=== PATIENT | female | born 1945 | race American Indian/Alaskan Native ===

== ENCOUNTER 2018-04-14 09:15 | Day surgery (SDC) | payer MEDICARE ==
[~2018-04-14 09:15] MED LIST: ANCEF/STERILE WATER 2 GM/20 ML 2 GM/20 ML SYRINGE IV NR; NACL 0.9% 1000 ML 1,000 ML IV SCH
--- NOTE | 2018-04-14 10:35 | Short Stay Summary ---
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 H&P: obtained from office - Allergies and Medications Current Medications: Allergies lisinopril Allergy (Verified 04/14/18 10:12) SEVERE COUGH soy Allergy (Verified 04/14/18 10:12) CAUSES VAGINAL BLEEDING Active Medications Cefazolin Sodium (Ancef/Sterile Water 2 Gm/20 Ml) 2 gm in 20 mls @ 80 mls/hr IV PREOP NR; Protocol Stop: 04/14/18 23:59 Sodium Chloride (Nacl 0.9% 1000 Ml) 1,000 mls @ 42 mls/hr IV DIRECT ELMER - Brief post op/procedure progress note Date of procedure: 04/14/18 Pre-op diagnosis: venous compression Post-op diagnosis: other (poor cardiac output) Procedure: Bilateral lower extremity venogram, intravascular ultrasound Anesthesia: local Surgeon: ANGELIC MACIEL Estimated blood loss: minimal Pathology: none Condition: stable - Disposition Condition at discharge: Good Disposition: [id number] TO HOME OR SELFCARE Short Stay Discharge Plan Activity: advance as tolerated Weight Bearing Status: Weight Bear as Tolerated Diet: regular Wound: keep clean and dry, per your surgeon's advice Follow up with: HARSHAL YAP MD [Primary Care Provider] - 7 Days
[2018-04-14 10:51] LABS: INR 0.89 (0.87-1.13)
[2018-04-14 10:52] LABS: Partial Thromboplastin Time 29.3 Sec. (24.2-36.6)
[2018-04-14 10:53] LABS: Hematocrit 37.3 % (30.3-42.9); Hemoglobin 12.1 gm/dl (10.1-14.3); Mean Corpuscular HGB Conc 32 % (30-34); Mean Corpuscular Hemoglobin 32 pg (28-32); Mean Corpuscular Volume 100 fl (79-97); Platelet Count 287 K/mm3 (140-440); Red Blood Count 3.73 M/mm3 (3.65-5.03); Red Cell Distribution Width 13.8 % (13.2-15.2)
[2018-04-14 10:54] LABS: Basophils % (Auto) 0.7 % (0.0-1.8); Eosinophils % (Auto) 0.7 % (0.0-4.3); Lymphocytes # (Auto) 1.3 K/mm3 (1.2-5.4); Lymphocytes % (Auto) 25.2 % (13.4-35.0); Monocytes # (Auto) 0.4 K/mm3 (0.0-0.8); Monocytes % (Auto) 8.4 % (0.0-7.3)
[2018-04-14 10:58] LABS: BUN/Creatinine Ratio 25; Blood Urea Nitrogen 15 mg/dL (7-17); Hemolysis Index 5
[2018-04-14] MEDS ORDERED: HEPARIN 10,000 UNITS/10 ML ONE (11:43)
[2018-04-14] MEDS ORDERED: HEPARIN/NS 5000 UNIT/500ML(CATH LAB) 1,000 ML IR ONE (11:43)
[2018-04-14] MEDS ORDERED: VERSED ONE (12:08)
[2018-04-14] MEDS ORDERED: SUBLIMAZE ONE (12:08)
[2018-04-14] MEDS: XYLOCAINE 2% INFILTRATI ONE ×2 (12:13→12:15)
--- NOTE | 2018-04-14 12:34 | Operative Report ---
Operative Report Operative Report: Exam: Bilateral lower extremity venogram, bilateral lower extremity intravascular ultrasound Clinical indication: Patient with venous hypertension secondary to extrinsic compression of veins Date: 04/14/2018 Procedure: Following an expiration of the risks, benefits and alternatives; written informed consent was obtained. The patient was brought into traffic suite and placed in supine position on the examination table. Initial ultrasound evaluation of her legs demonstrate a patent femoral veins bilaterally. The legs were prepped and draped in the usual sterile fashion. 1 % lidocaine was used for anesthesia. Under ultrasound guidance, the right femoral vein was cannulated with a 7 cm 18- gauge needle. A 0.035 guidewire was advanced and feet. The needle was removed and a [address] Excess to the proximal left femoral vein was obtained in a similar fashion and a second 5 [place] placed. Contrast was injected through the sheaths bilaterally which demonstrate some irregularities within the wall of the vessel. There appears to be poor cardiac output. Given the irregularities, the decision was made further weight with intravascular ultrasound. The issues were upsized to 10 [place] sheath bilaterally. Intravascular ultrasound was performed to the right sheath from the mid IVC to that sheath insertion site. Image vessels included the IVC, right common iliac vein, right external iliac vein and right common femoral vein. Intravascular ultrasound was then performed to the left cheek from the IVC that the sheath insertion site. Image vessels including the IVC, left common iliac vein, left external iliac vein and left common femoral vein. All of the image vessels appear to be enlarged. The tortuosity is due to enlargement. The intravascular ultrasound catheter was removed and contrast was injected through both she simultaneously. This demonstrates poor flow with some phasicity. Additional contrast was injected to evaluate flow into the heart. This demonstrates flow into the right atrium with reflux within the hepatic veins. At this point, the sheaths were removed and hemostasis achieved using manual compression. Sterile compression dressings were placed. The patient tolerated the procedure well. There were no immediate post procedure complications. Conscious sedation was performed under the guidance of radiologic nursing. Continuous cardiopulmonary monitoring was utilized. Impression: 1) Bilateral lower extremity venogram demonstrating sluggish flow with some phasicity and reflux within the hepatic veins from the right atrium suggesting cardiac dysfunction. 2) Intravascular ultrasound demonstrating greatly enlarged imaged vessels including the IVC, bilateral common iliac, bilateral external iliac and bilateral common femoral veins.
[2018-04-14 15:18] VITALS: BP 129/75
== END 2018-04-14 15:45 | disposition home or self-care (01) ==
LOC: CATHLABREC 09:15
PROVIDERS: ATTEND Radiology Diagnostic Radiology
DX: I87.1 Compression of vein (principal); I87.323 Chronic venous hypertension (idiopathic) with inflammation of bilateral lower extremity; I87.2 Venous insufficiency (chronic) (peripheral); M19.90 Unspecified osteoarthritis, unspecified site; I10 Essential (primary) hypertension; Z79.899 Other long term (current) drug therapy; Z79.82 Long term (current) use of aspirin; Z88.8 Allergy status to other drugs, medicaments and biological substances; Z91.018 Allergy to other foods; Z98.890 Other specified postprocedural states; Z80.9 Family history of malignant neoplasm, unspecified
CPT/HCPCS: 36415; 37252; 37253; 75822; 76937; 80048; 85025; 85610; 85730; 99156; 99157; C1753; C1769; C1887; C1894; J1644; J2250; J3010; J7030; Q9967